=== PATIENT | male | born 1950 | race Caucasian/White ===

== ENCOUNTER 2019-12-13 16:49 | Inpatient (IN) | payer OTHER, MEDICAID ==
[~2019-12-13] VITALS: Ht 182.9 cm; Wt 85.7 kg
[2019-12-13] MEDS ORDERED: NACL 0.9% 1,000 ML IV ONE (17:09)
[2019-12-13] MEDS ORDERED: INSU100V9 SUBQ (17:12)
[2019-12-13] MEDS ORDERED: FLOR.1 PO (17:12)
[2019-12-13] MEDS ORDERED: SIMV20TA2 PO (17:12)
[2019-12-13] MEDS ORDERED: MIDO10TA PO (17:12)
[2019-12-13] MEDS ORDERED: OXYC-133 PO (17:12)
[2019-12-13] MEDS ORDERED: SENN8.6T19 PO (17:12)
[2019-12-13] MEDS ORDERED: SSNOVOLOG SUBQ (17:12)
[2019-12-13] MEDS ORDERED: DOLU1TAB PO (17:12)
[2019-12-13] MEDS ORDERED: DULO60CA65 PO (17:12)
[2019-12-13] MEDS ORDERED: ASPIRIN 81 MG TAB.CHEW PO ONE (17:15)
[2019-12-13 17:18] VITALS: BP_SYST 141
[2019-12-13 18:07] LABS: BASOPHILS % (AUTO) 0.7 % (0.0-2.0); EOSINOPHILS # (AUTO) 0.2 K/uL (0.0-0.4); EOSINOPHILS % (AUTO) 3.2 % (0.0-4.0); HEMOGLOBIN 12.7 g/dL (14.0-18.0); LYMPHOCYTES # (AUTO) 1.8 K/uL (1.0-5.5); LYMPHOCYTES % (AUTO) 25.1 % (20.5-51.5); MEAN CORPUSCULAR HEMOGLOBIN 30 pg (27-31); MEAN CORPUSCULAR HGB CONC 34 % (32-36); MEAN CORPUSCULAR VOLUME 87 fL (79.0-98.0); MONOCYTES # (AUTO) 0.6 K/uL (0.0-1.0); MONOCYTES % (AUTO) 8.4 % (1.7-9.3); NEUTROPHILS # (AUTO) 4.5 K/uL (1.8-7.7); NEUTROPHILS % (AUTO) 62.6 % (40.0-70.0); PLATELET COUNT (AUTO) 362 K/uL (130-430); RED BLOOD CELL COUNT(AUTO) 4.24 MIL/uL (4.2-6.2); WHITE BLOOD COUNT (AUTO) 7.1 K/uL (4.8-10.8)
[2019-12-13 18:08] LABS: ANION GAP 4 (5-15); CALCIUM 8.2 mg/dL (8.4-11.0); CHLORIDE 100 mmol/L (98-107); GLUCOSE 217 mg/dL (70-99); POTASSIUM 3.6 mmol/L (3.5-5.1); SODIUM SERUM 135 mmol/L (136-145); UREA NITROGEN, BLOOD 29 mg/dL (8-21)
[2019-12-13 18:09] LABS: GFR AFRICAN AMERICAN 41 mL/min (>90)
[2019-12-13 18:11] LABS: PROTHROMBIN TIME 10.1 SECS (9.5-12.5)
[2019-12-13 18:15] LABS: ALANINE AMINOTRANSFERASE 18 U/L (12-78); ALBUMIN 3.3 g/dL (3.4-4.8); ALCOHOL, BLOOD < 3 mg/dL (<10); AMYLASE 31 U/L (0-100); ASPARTATE AMINOTRANSFERASE 18 U/L (10-37); LIPASE 47 U/L (73-393); TOTAL BILIRUBIN 0.3 mg/dL (0.0-1.0)
[2019-12-13 18:49] LABS: BILIRUBIN,URINE NEGATIVE (NEGATIVE); BLOOD, URINE NEGATIVE (NEGATIVE); CLARITY/URINE CLEAR (CLEAR); COLOR,URINE YELLOW (YELLOW); GLUCOSE,URINE 2+ (NEGATIVE); KETONES,URINE NEGATIVE (NEGATIVE); LEUKOCYTE ESTERASE ,URINE NEGATIVE (NEGATIVE); NITRITE, URINE NEGATIVE (NEGATIVE); PROTEIN URINE 2+ (NEGATIVE); UROBILINOGEN,URINE 0.2 (0.2-1.0)
[2019-12-13 19:01] LABS: BARBITURATE, URINE NEGATIVE (NEG <=200); BENZODIAZEPINE, URINE NEGATIVE (NEG <=150); CANNABINOID, URINE POSITIVE (NEG <=50); COCAINE, URINE NEGATIVE (NEG <=150); METHAMPHETAMINES SCREEN,URINE NEGATIVE (NEG <=500); OPIATE, URINE NEGATIVE (NEG <=100); PHENCYCLIDINE SCREEN,URINE NEGATIVE (NEG <=25); UR TRICYCLIC ANTIDEPRESSANTS NEGATIVE (NEG <=300); URINE AMPHETAMINE NEGATIVE (NEG <=500); URINE METHADONE NEGATIVE (NEG <=200); URINE OXYCODONE SCREEN POSITIVE (NEG <=100); URINE PROPOXYPHENE SCREEN NEGATIVE (NEG <=300)
[2019-12-13 19:07] LABS: BACTERIA,URINE FEW /HPF (None Seen); MUCUS,URINE None Seen /LPF (None Seen); RBC,URINE NONE SEEN /HPF (0-3); WBC,URINE 0-3 /HPF (0-3)
[2019-12-13] MEDS ORDERED: OXYCODONE/ACETAMINOPHEN *10*mg/325 mg TABLET PO SCH (19:15)
[2019-12-13] MEDS ORDERED: SENNOSIDES 8.6 MG TABLET PO SCH (19:15)
[2019-12-13 19:55] VITALS: BP_SYST 157
[2019-12-13] MEDS ORDERED: INSULIN ASPART 100 UNITS/ML, 10 ML VIAL (NovoLOG) SQ SCH (21:00)
[2019-12-13] MEDS ORDERED: DULOXETINE HCL PO SCH (21:00)
[2019-12-13] MEDS ORDERED: FLUDROCORTISONE ACETATE 0.1 MG TABLET( FLORINEF) PO SCH (21:00)
[2019-12-13] MEDS ORDERED: MIDODRINE HCL 5 MG TABLET (PROAMATINE) PO SCH ×2 (21:00)
[2019-12-13] MEDS: FLUDROCORTISONE ACETATE 0.1 MG TABLET( FLORINEF) PO SCH (21:48)
[2019-12-13] MEDS: DULoxetine HCL 30 MG CAPSULE.DR (CYMBALTA) PO SCH (21:49)
[2019-12-13] MEDS: OXYCODONE/ACETAMINOPHEN *10*mg/325 mg TABLET PO SCH (23:14)
[2019-12-14] VITALS (8 sets, daily range): BP systolic 67–152
[2019-12-14] MEDS: OXYCODONE/ACETAMINOPHEN *10*mg/325 mg TABLET PO SCH ×6 (03:00→21:40)
[2019-12-14] MEDS ORDERED: DOLUTEGRAVIR PO SCH (09:00)
[2019-12-14] MEDS ORDERED: INSULIN GLARGINE 100 UNITS/ML 10 ML VIAL SQ SCH (09:00)
[2019-12-14] MEDS ORDERED: SIMVASTATIN 20 MG TABLET PO SCH (09:00)
[2019-12-14] MEDS ORDERED: FLUDROCORTISONE ACETATE 0.1 MG TABLET( FLORINEF) PO SCH (09:00)
[2019-12-14] MEDS ORDERED: RILPIVIRINE PO SCH (09:00)
[2019-12-14] MEDS: DULoxetine HCL 30 MG CAPSULE.DR (CYMBALTA) PO SCH ×2 (09:08→22:30)
[2019-12-14] MEDS: FLUDROCORTISONE ACETATE 0.1 MG TABLET( FLORINEF) PO SCH ×2 (09:08→22:31)
[2019-12-14] MEDS: SIMVASTATIN 20 MG TABLET PO SCH (09:08)
[2019-12-14] MEDS: INSULIN GLARGINE 100 UNITS/ML 10 ML VIAL SQ SCH (09:14)
[2019-12-14] MEDS: INSULIN ASPART 100 UNITS/ML, 10 ML VIAL (NovoLOG) SQ SCH ×5 (09:52→21:00)
[2019-12-14] MEDS: JULUCA PO SCH (11:38)
[2019-12-14] MEDS: MIDODRINE HCL 5 MG TABLET (PROAMATINE) PO SCH ×2 (15:48→22:30)
[2019-12-15 00:35] VITALS: BP_SYST 162
[2019-12-15] MEDS: OXYCODONE/ACETAMINOPHEN *10*mg/325 mg TABLET PO SCH ×2 (02:07→06:19)
[2019-12-15] MEDS: INSULIN ASPART 100 UNITS/ML, 10 ML VIAL (NovoLOG) SQ SCH (06:24)
[2019-12-15 06:25] LABS: BASOPHILS # (AUTO) 0.1 K/uL (0.0-0.2); BASOPHILS % (AUTO) 0.7 % (0.0-2.0); EOSINOPHILS # (AUTO) 0.6 K/uL (0.0-0.4); EOSINOPHILS % (AUTO) 8.3 % (0.0-4.0); HEMATOCRIT 37.5 % (36-54); HEMOGLOBIN 12.6 g/dL (14.0-18.0); LYMPHOCYTES # (AUTO) 2.8 K/uL (1.0-5.5); LYMPHOCYTES % (AUTO) 39.4 % (20.5-51.5); MEAN CORPUSCULAR HEMOGLOBIN 29 pg (27-31); MEAN CORPUSCULAR HGB CONC 34 % (32-36); MEAN CORPUSCULAR VOLUME 88 fL (79.0-98.0); MONOCYTES # (AUTO) 0.7 K/uL (0.0-1.0); MONOCYTES % (AUTO) 10.4 % (1.7-9.3); NEUTROPHILS # (AUTO) 2.9 K/uL (1.8-7.7); NEUTROPHILS % (AUTO) 41.2 % (40.0-70.0); PLATELET COUNT (AUTO) 348 K/uL (130-430); RED BLOOD CELL COUNT(AUTO) 4.28 MIL/uL (4.2-6.2); RED CELL DISTRIBUTION WIDTH 13.8 % (9.0-15.0)
[2019-12-15] MEDS ORDERED: D5W 1,000 ML IV PRN (06:31)
[2019-12-15 06:33] LABS: ALBUMIN 3.1 g/dL (3.4-4.8); CALCIUM 8.2 mg/dL (8.4-11.0); CREATININE 1.87 mg/dL (0.55-1.30); POTASSIUM 3.5 mmol/L (3.5-5.1); THYROID STIMULATING HORMONE 1.23 uIu/mL (0.34-4.82); TOTAL BILIRUBIN 0.4 mg/dL (0.0-1.0)
[2019-12-15] MEDS ORDERED: DEXTROSE 50% JECT 50 ML DISP.SYRIN IVP PRN (06:45)
[2019-12-15] MEDS ORDERED: GLUCOSE 15 GM GEL (in 37.5 GM TUBE) PO PRN (06:45)
[2019-12-15 07:59] VITALS: BP_SYST 110
[2019-12-15 08:00] VITALS: BP_SYST 110; BP_SYST 48; BP_SYST 70
[2019-12-15] MEDS: DULoxetine HCL 30 MG CAPSULE.DR (CYMBALTA) PO SCH ×2 (09:53→20:43)
[2019-12-15] MEDS: FLUDROCORTISONE ACETATE 0.1 MG TABLET( FLORINEF) PO SCH ×2 (09:53→20:43)
[2019-12-15] MEDS: MIDODRINE HCL 5 MG TABLET (PROAMATINE) PO SCH ×3 (09:54→20:43)
[2019-12-15] MEDS: SENNOSIDES 8.6 MG TABLET PO PRN (09:54)
[2019-12-15] MEDS: SIMVASTATIN 20 MG TABLET PO SCH (09:54)
[2019-12-15] MEDS: OXYCODONE/ACETAMINOPHEN 5-325 TABLET PO PRN ×2 (09:55→17:29)
[2019-12-15] MEDS: INSULIN GLARGINE 100 UNITS/ML 10 ML VIAL SQ SCH (10:37)
[2019-12-15] MEDS: JULUCA PO SCH (10:39)
[2019-12-15] MEDS ORDERED: TAMSULOSIN HCL 0.4 MG CAP PO ONE (10:45)
[2019-12-15 14:30] VITALS: BP_SYST 131; BP_SYST 63
[2019-12-15 16:56] VITALS: BP_SYST 126; BP_SYST 52; BP_SYST 81
[2019-12-15] MEDS: INSULIN LISPRO SLIDING SCALE 100 UNITS/ML VIAL (humaLOG) SQ SCH ×3 (17:00→20:47)
[2019-12-15 20:00] VITALS: BP_SYST 112; BP_SYST 65; BP_SYST 96
[2019-12-16] VITALS (8 sets, daily range): BP systolic 63–142
[2019-12-16] MEDS: OXYCODONE/ACETAMINOPHEN 5-325 TABLET PO PRN ×3 (04:54→17:32)
[2019-12-16] MEDS: INSULIN LISPRO SLIDING SCALE 100 UNITS/ML VIAL (humaLOG) SQ SCH ×4 (06:14→21:41)
[2019-12-16 06:41] LABS: BASOPHILS % (AUTO) 0.7 % (0.0-2.0); EOSINOPHILS # (AUTO) 0.3 K/uL (0.0-0.4); EOSINOPHILS % (AUTO) 6.2 % (0.0-4.0); HEMOGLOBIN 11.6 g/dL (14.0-18.0); LYMPHOCYTES # (AUTO) 1.7 K/uL (1.0-5.5); LYMPHOCYTES % (AUTO) 30.9 % (20.5-51.5); MEAN CORPUSCULAR HEMOGLOBIN 30 pg (27-31); MEAN CORPUSCULAR HGB CONC 34 % (32-36); MEAN CORPUSCULAR VOLUME 87 fL (79.0-98.0); MONOCYTES # (AUTO) 0.5 K/uL (0.0-1.0); MONOCYTES % (AUTO) 9.4 % (1.7-9.3); NEUTROPHILS # (AUTO) 2.9 K/uL (1.8-7.7); NEUTROPHILS % (AUTO) 52.8 % (40.0-70.0); PLATELET COUNT (AUTO) 294 K/uL (130-430); RED BLOOD CELL COUNT(AUTO) 3.91 MIL/uL (4.2-6.2); WHITE BLOOD COUNT (AUTO) 5.5 K/uL (4.8-10.8)
[2019-12-16 06:42] LABS: CALCIUM 8.1 mg/dL (8.4-11.0); CREATININE 1.79 mg/dL (0.55-1.30); POTASSIUM 3.1 mmol/L (3.5-5.1); TOTAL BILIRUBIN 0.4 mg/dL (0.0-1.0)
[2019-12-16] MEDS: SENNOSIDES 8.6 MG TABLET PO PRN (09:52)
[2019-12-16] MEDS: TAMSULOSIN HCL 0.4 MG CAP PO SCH (09:52)
[2019-12-16] MEDS: FLUDROCORTISONE ACETATE 0.1 MG TABLET( FLORINEF) PO SCH ×2 (09:53→21:34)
[2019-12-16] MEDS: SIMVASTATIN 20 MG TABLET PO SCH (09:53)
[2019-12-16] MEDS: DULoxetine HCL 30 MG CAPSULE.DR (CYMBALTA) PO SCH ×2 (09:54→21:35)
[2019-12-16] MEDS: JULUCA PO SCH (09:54)
[2019-12-16] MEDS: INSULIN GLARGINE 100 UNITS/ML 10 ML VIAL SQ SCH (10:06)
[2019-12-16] MEDS: MIDODRINE HCL 5 MG TABLET (PROAMATINE) PO SCH ×3 (12:40→21:34)
[2019-12-17 00:16] VITALS: BP_SYST 121
[2019-12-17] MEDS: INSULIN LISPRO SLIDING SCALE 100 UNITS/ML VIAL (humaLOG) SQ SCH ×4 (06:02→21:35)
[2019-12-17 08:10] VITALS: BP_SYST 104; BP_SYST 56; BP_SYST 94
[2019-12-17] MEDS: OXYCODONE/ACETAMINOPHEN 5-325 TABLET PO PRN ×2 (08:38→21:03)
[2019-12-17] MEDS: MIDODRINE HCL 5 MG TABLET (PROAMATINE) PO SCH ×4 (08:38→21:01)
[2019-12-17] MEDS: DULoxetine HCL 30 MG CAPSULE.DR (CYMBALTA) PO SCH ×2 (08:39→21:00)
[2019-12-17] MEDS: TAMSULOSIN HCL 0.4 MG CAP PO SCH (08:39)
[2019-12-17] MEDS: SIMVASTATIN 20 MG TABLET PO SCH (08:39)
[2019-12-17] MEDS: JULUCA PO SCH (08:40)
[2019-12-17] MEDS: INSULIN GLARGINE 100 UNITS/ML 10 ML VIAL SQ SCH (08:46)
[2019-12-17] MEDS: SENNOSIDES 8.6 MG TABLET PO PRN (08:58)
[2019-12-17] MEDS ORDERED: FLUDROCORTISONE ACETATE 0.1 MG TABLET( FLORINEF) PO ONE (09:00)
[2019-12-17 12:44] VITALS: BP_SYST 149; BP_SYST 73; BP_SYST 84
[2019-12-17] MEDS: FLUDROCORTISONE ACETATE 0.1 MG TABLET( FLORINEF) PO SCH ×2 (14:43→21:01)
[2019-12-17 20:00] VITALS: BP_SYST 101; BP_SYST 106; BP_SYST 165; BP_SYST 73
[2019-12-18] VITALS (10 sets, daily range): BP systolic 62–148
[2019-12-18 03:07] LABS: CORTISOL (SERUM) 8.8 ug/dL (.)
[2019-12-18] MEDS: OXYCODONE/ACETAMINOPHEN 5-325 TABLET PO PRN ×3 (06:06→20:33)
[2019-12-18 06:22] LABS: CALCIUM 8.3 mg/dL (8.4-11.0); CREATININE 1.63 mg/dL (0.55-1.30); POTASSIUM 3.4 mmol/L (3.5-5.1); TOTAL BILIRUBIN 0.4 mg/dL (0.0-1.0)
[2019-12-18] MEDS: INSULIN LISPRO SLIDING SCALE 100 UNITS/ML VIAL (humaLOG) SQ SCH ×4 (06:34→20:53)
[2019-12-18] MEDS: MIDODRINE HCL 5 MG TABLET (PROAMATINE) PO SCH ×4 (08:21→20:31)
[2019-12-18] MEDS: DULoxetine HCL 30 MG CAPSULE.DR (CYMBALTA) PO SCH ×2 (08:21→20:31)
[2019-12-18] MEDS: TAMSULOSIN HCL 0.4 MG CAP PO SCH (08:21)
[2019-12-18] MEDS: SIMVASTATIN 20 MG TABLET PO SCH (08:21)
[2019-12-18] MEDS: SENNOSIDES 8.6 MG TABLET PO PRN (08:22)
[2019-12-18] MEDS: FLUDROCORTISONE ACETATE 0.1 MG TABLET( FLORINEF) PO SCH ×3 (08:22→20:31)
[2019-12-18] MEDS: JULUCA PO SCH (08:23)
[2019-12-18] MEDS: INSULIN GLARGINE 100 UNITS/ML 10 ML VIAL SQ SCH (08:29)
[2019-12-18] MEDS ORDERED: MIDODRINE HCL 5 MG TABLET (PROAMATINE) ONE ×2 (13:32→14:19)
[2019-12-18] MEDS ORDERED: MIDO5TAB PO (20:06)
[2019-12-18] MEDS ORDERED: FLOR.1 PO (20:06)
== END 2019-12-18 21:20 | disposition home or self-care (01) | DRG 73 ==
LOC: SED 16:49 → STU 19:05 → SED 19:34 → STU 20:49
PROVIDERS: ADMIT Internal Medicine Infectious Disease; ATTEND Internal Medicine Infectious Disease
DX: E11.43 Type 2 diabetes mellitus with diabetic autonomic (poly)neuropathy (principal); N17.0 Acute kidney failure with tubular necrosis; I13.0 Hypertensive heart and chronic kidney disease with heart failure and stage 1 through stage 4 chronic kidney disease, or unspecified chronic kidney disease; N18.4 Chronic kidney disease, stage 4 (severe); I95.1 Orthostatic hypotension; E11.22 Type 2 diabetes mellitus with diabetic chronic kidney disease; E11.65 Type 2 diabetes mellitus with hyperglycemia; M54.9 Dorsalgia, unspecified; G89.29 Other chronic pain; I50.9 Heart failure, unspecified; I25.10 Atherosclerotic heart disease of native coronary artery without angina pectoris; Z87.891 Personal history of nicotine dependence; Z95.1 Presence of aortocoronary bypass graft; Z88.8 Allergy status to other drugs, medicaments and biological substances; Z90.49 Acquired absence of other specified parts of digestive tract; Z79.4 Long term (current) use of insulin; Z89.022 Acquired absence of left finger(s); Z91.018 Allergy to other foods
CPT/HCPCS: 36415; 70450-TC; 71045; 76770; 80053; 80307; 81000-TC; 82150-TC; 82533; 82550-TC; 82607; 82962; 83036; 83605; 83690-TC; 83880; 84443-TC; 84484; 85025; 85379; 85610-TC; 85730-TC; 86710; 87040-TC; 87081; 93005; 96360; 97110-GP; 97112-GP; 97116-GP; 97530-GP; 99285; G0378; G0481; G0482; J1815